=== PATIENT | male | born 1960 | race African-American/Black ===

== ENCOUNTER 2025-01-13 21:13 | Emergency (ER) | payer SELFPAY ==
[~2025-01-13] VITALS: Ht 185.4 cm; Wt 75.0 kg
[2025-01-13 21:18] VITALS: O2SAT 100
[2025-01-13] MEDS: TETANUS, DIPHTHERIA, PERTUSSIS VAC/PF 0.5ML (>10YR OLD) IM ONE (21:58)
[2025-01-13] MEDS: TETRACAINE 0.5% OPHTH DROPS 4ML RIGHTEYE SCH (22:52)
[2025-01-13] MEDS: LIDOCAINE HCL 1% 20ML VIAL INFIL ONE (22:55)
[2025-01-13] MEDS ORDERED: CEPH500T MT (23:12)
[2025-01-13] MEDS: CEPHALEXIN 250MG CAPSULE PO STA (23:16)
[2025-01-13 23:22] VITALS: BP 168/81; PULSE 80; RESP 22; TEMP 37.1; O2SAT 99
== END 2025-01-13 23:25 | disposition home or self-care (01) ==
LOC: ER 21:13
DX: S01.111A Laceration without foreign body of right eyelid and periocular area, initial encounter (principal); S61.216A Laceration without foreign body of right little finger without damage to nail, initial encounter; X58.XXXA Exposure to other specified factors, initial encounter; Y93.89 Activity, other specified; Y92.89 Other specified places as the place of occurrence of the external cause; Y99.8 Other external cause status
CPT/HCPCS: 90715; 12002; 12013; 90471; 99283; J2003; Z7610 ×5; A4606